=== PATIENT | female | born 1985 | race Caucasian/White ===

== ENCOUNTER 2019-12-02 20:45 | Emergency (ER) | payer BC ==
[~2019-12-02] VITALS: Ht 175.3 cm; Wt 108.9 kg
[~2019-12-02 20:45] MED LIST: FLAGYL500 MG PO; MACROBID 100 M100 M1 PO; [UNRECOGNIZED DRUG - OTHER] PO
[2019-12-02] MEDS ORDERED: OXYCODONE HCL 55 MG PO (21:53)
[2019-12-02] MEDS ORDERED: DIAZEPAM 5 MG5 MG PO (21:53)
[2019-12-02] MEDS ORDERED: ZOFRAN ODT4 MG PO (22:36)
[2019-12-02 22:56] VITALS: BP 114/69
== END 2019-12-02 22:56 | disposition home or self-care (01) ==
LOC: M.ERS 20:45
DX: S82.041A Displaced comminuted fracture of right patella, initial encounter for closed fracture (principal); Z91.040 Latex allergy status; Z88.5 Allergy status to narcotic agent; Z88.8 Allergy status to other drugs, medicaments and biological substances; W01.0XXA Fall on same level from slipping, tripping and stumbling without subsequent striking against object, initial encounter; Y93.89 Activity, other specified; Y92.090 Kitchen in other non-institutional residence as the place of occurrence of the external cause; Y99.8 Other external cause status